=== PATIENT | male | born 1960 | race Caucasian/White ===

== ENCOUNTER 2019-12-15 19:50 | Emergency (ER) | payer MEDICAID ==
[~2019-12-15] VITALS: Ht 160 cm; Wt 90.7 kg
[2019-12-15 19:51] VITALS: Ht 160 cm; Wt 90.7 kg
[2019-12-15 22:48] LABS: BASOPHIL % 0.5 % (0-2); PLATELET COUNT 240 x10^3mcL (130-400); RED CELL DISTRIBUTION WIDTH 13.8 % (11.5-14.5)
[2019-12-15 22:51] LABS: CALCIUM 8.2 mg/dL (8.5-10.1); CARBON DIOXIDE 25.3 mmol/L (21-32); CHLORIDE SERUM 109 mmol/L (98-107); CREATININE SERUM 1.1 mg/dL (0.7-1.3); GFR1 > 60 mL/min; GLUCOSE SERUM 105 mg/dL (74-106); POTASSIUM SERUM 3.5 mmol/L (3.5-5.1); SODIUM SERUM 144 mmol/L (136-145)
[2019-12-15 22:56] LABS: ALBUMIN 3.6 g/dL (3.4-5.0); ALKALINE PHOSPHATASE 86 U/L (46-116); ALT/SGPT 26 U/L (16-63); AST/SGOT 19 U/L (15-37); LIPASE 84 IU/L (73-393); TOTAL PROTEIN, SERUM 6.8 g/dL (6.4-8.2)
[2019-12-16 05:15] LABS: AMPHETAMINE QUAL UR NONE DETECTED (See below)
[2019-12-16 09:12] VITALS: BP 134/70
== END 2019-12-16 09:12 | disposition home or self-care (01) ==
LOC: ED 19:50
PROVIDERS: Emergency Medicine
DX: F23 Brief psychotic disorder (principal); F15.10 Other stimulant abuse, uncomplicated; R10.9 Unspecified abdominal pain; E86.0 Dehydration; I10 Essential (primary) hypertension; Z20.828 Contact with and (suspected) exposure to other viral communicable diseases; Z88.8 Allergy status to other drugs, medicaments and biological substances
CPT/HCPCS: G0480; J1630; J2060; J7030; U0003-CS

== ENCOUNTER 2019-12-17 20:58 | Emergency (ER) | payer MEDICAID ==
[~2019-12-17] VITALS: Ht 167.6 cm; Wt 95.3 kg
[2019-12-17 21:01] VITALS: Ht 167.6 cm; Wt 95.3 kg
== END 2019-12-17 22:03 | disposition home or self-care (01) ==
LOC: ED 20:58
DX: B34.9 Viral infection, unspecified (principal); I10 Essential (primary) hypertension; Z20.828 Contact with and (suspected) exposure to other viral communicable diseases; Z88.6 Allergy status to analgesic agent